=== PATIENT | male | born 1945 | race Caucasian/White ===

== ENCOUNTER 2016-08-22 08:58 | Emergency (ER) | payer MEDICARE, OTHER ==
[2016-08-22] MEDS ORDERED: Acetaminophen TAB* 325 MG PO ONE (09:55)
[2016-08-22 10:38] LABS: Hematocrit 40 % (42-52); Mean Corpuscular HGB Conc 35 g/dl (31-36); Mean Corpuscular Hemoglobin 34 pg (27-31); Mean Corpuscular Volume 96 fL (80-94); Mean Platelet Volume 9 um3 (7.4-10.4); Red Blood Count 4.16 10^6/ul (4.0-5.4); Red Cell Distribution Width 13 % (10.5-15); White Blood Count 7.8 10^3/ul (3.5-10.8)
--- NOTE | 2016-08-22 10:42 | RAD ---
INDICATION: Pain and swelling. COMPARISON: None TECHNIQUE: Duplex interrogation of the Lowerextremity was performed. FINDINGS: Deep veins: The common femoral, great saphenous, profunda femoris, proximal, mid, and distal deep femoral, popliteal, posterior tibial, and one of 2 peroneal veins are patent. There is normal compressibility, augmentation, and phasic flow. One of the peroneal veins therefore not identified which could be related to thrombus or be related to technical factors Superficial veins: There are no findings of superficial thrombophlebitis. Popliteal fossa:There is no evidence of a popliteal cyst. Soft tissues:There are no soft tissue abnormalities. IMPRESSION: POSSIBLE THROMBOSIS OF ONE OF THE PAIRED PERONEAL VEINS. NO EVIDENCE OF DEEP VENOUS THROMBOSIS ABOVE THE KNEE
[2016-08-22 11:04] VITALS: BP 127/78
[2016-08-22 11:14] LABS: Calcium 9.1 mg/dL (8.6-10.3); EGFR Non-African American 73.9 (>60); Globulin 2.5 g/dL (2-4); Magnesium 1.8 mg/dL (1.9-2.7); Phosphorus 3.5 mg/dL (2.5-5.0); Potassium 4.4 mmol/L (3.5-5.0); Total Bilirubin 0.8 mg/dL (0.2-1.0); Total Protein 6.5 g/dL (6.4-8.9)
[2016-08-22] MEDS ORDERED: Enoxaparin(*) 40 MG/0.4 ML SYR SUBCUT ONE (12:08)
--- NOTE | 2016-08-22 12:08 | ED ---
Lower Extremity - HPI Summary HPI Summary: 71 y/o male with PMH of DM, HTN, elevated chol presents with L calf pain x 3 days, states intermittently occuring for weeks, seen by Dr. Amado, was given "pill" to take 4 times a day to prevent symptoms. patient poor historian, unawawre of medications, per pharmacy- amlod, lisinopril, atorv, metform, and low Mg- likely Mg new medication as multiple times a day. Patient states pain not worse with walking/ amulation, worst with rising from chair, then improved with walking. no h/o CA, prior DVT/ PE. patient wasn't sure if he was on Plavix, was in previous records. Denies GI bleed, stroke, recent bleed. ONly anticoag- 81 ASA daily. No SOB, chest pain. Pain located L calf, radiates to back of knee and lateral thigh. NO hip/ lower back pain - History of Current Complaint Chief Complaint: EDExtremityLower Stated Complaint: LT LEG PAIN Time Seen by Provider: 08/22/16 09:13 Hx Obtained From: Patient Mechanism Of Injury: Unknown Onset of Pain: Days Onset/Duration: Worse Since - 3 days Severity Initially: Moderate Severity Currently: Moderate Pain Intensity: 10 Pain Scale Used: 0-10 Numeric - patient sitting comfortably on stretcher, NAD at rest, able to walk to bathroom with antalgic gait, no severe pain noted. - Allergies/Home Medications Allergies/Adverse Reactions: Allergies Allergy/AdvReac Type Severity Reaction Status Date / Time Penicillins [PCN] Allergy Unknown unk Verified 08/22/16 09:01 Iron Allergy Constipatio Verified 08/22/16 09:01 n PMH/Surg Hx/FS Hx/Imm Hx Previously Healthy: No Endocrine/Hematology History: Reports: Hx Diabetes - TYPE 2 Cardiovascular History: Reports: Hx Hypertension - ON MEDICATION FOR, Other Cardiovascular Problems/Disorders - CHOLESTEROL CONTROL WITH MEDS Denies: Hx Congestive Heart Failure, Hx Pacemaker/ICD Respiratory History: Reports: Hx Asthma - NO PROBLEMS IN RECENT YEARS, Hx Chronic Bronchitis, Hx Sleep Apnea GI History: Reports: Hx Gastroesophageal Reflux Disease - CONTROLLED WITH ROLAIDS, Hx Hiatal Hernia, Other GI Disorders - CONSTIPATION, USING MEDICATION History: Reports: Hx Kidney Stones - LEFT URETERAL STENT, WITH HEMATURIA, BURNING, Other Problems/Disorders - ENLARGE PROSTATE Denies: Hx Renal Disease Musculoskeletal History: Reports: Hx Back Problems, Other Musculoskeletal History - carpaltunnel surgery sakshi. Sensory History: Reports: Hx Cataracts - BILATERAL, Hx Contacts or Glasses - READING GLASSES, Hx Vision Problem - pt states dizzyness at times Denies: Hx Hearing Aid Opthamlomology History: Reports: Hx Cataracts - BILATERAL, Hx Contacts or Glasses - READING GLASSES, Hx Vision Problem - pt states dizzyness at times Psychiatric History: Reports: Hx Depression - DENIES Denies: Hx Panic Disorder - Surgical History Surgery Procedure, Year, and Place: BILATERAL HERNIA, [facility] Hx Anesthesia Reactions: No Infectious Disease History: No Infectious Disease History: Denies: Hx Clostridium Difficile, History Other Infectious Disease, Traveled Outside the [place] in Last 30 Days - Social History Alcohol Use: Rare Substance Use Type: Reports: None Hx Tobacco Use: No Smoking Status (MU): Former Smoker Type: Cigarettes Amount Used/How Often: LESS THAN 1 PACK PER WEEK Length of Time of Smoking/Using Tobacco: 2-3 YEARS Have You Smoked in the Last Year: No Review of Systems Constitutional: Negative Eyes: Negative ENT: Negative Cardiovascular: Negative Respiratory: Negative Gastrointestinal: Negative Genitourinary: Negative Positive: Myalgia Skin: Negative Neurological: Negative Psychological: Normal All Other Systems Reviewed And Are Negative: Yes Physical Exam Triage Information Reviewed: Yes Vital Signs On Initial Exam: Initial Vitals Temp Pulse Resp BP Pulse Ox 98.9 F 75 16 152/77 96 08/22/16 09:01 08/22/16 09:01 08/22/16 09:01 08/22/16 09:01 08/22/16 09:01 Completion Of Physical Exam Limited Due To: Dementia Appearance: Positive: Well-Appearing, Well-Nourished, Pain Distress - mild Skin: Positive: Warm, Skin Color Reflects Adequate Perfusion, Other - PT, DP pulses 2+ b/l, equal, good skin colour, no hyperpigmentation b/l LE's, no edema noted, no calf size difference Eyes: Positive: Normal, EOMI Respiratory/Lung Sounds: Positive: Clear to Auscultation, Breath Sounds Present Cardiovascular: Positive: Normal, RRR, Pulses are Symmetrical in both Upper and Lower Extremities, S1, S2 Abdomen Description: Positive: Nontender, No Organomegaly, Soft Musculoskeletal: Positive: Normal, Strength/ROM Intact, Pain @ - with moderate to deep palpation over posterior L calf and lateral calf with minimal pain behind knee, no knee effusion, no warmth, no erythema noted., Benny Sign Left - positive mild Neurological: Positive: Normal, Sensory/Motor Intact, Alert, Oriented to Person Place, Time, CN Intact II-III, Normal Gait Psychiatric: Positive: Normal AVPU Assessment: Alert Diagnostics - Vital Signs Vital Signs Temp Pulse Resp BP Pulse Ox 08/22/16 10:30 69 127/78 93 08/22/16 10:26 143/76 08/22/16 10:22 68 93 08/22/16 10:19 68 93 08/22/16 09:30 70 146/71 95 08/22/16 09:21 76 95 08/22/16 09:20 183/74 08/22/16 09:01 98.9 F 75 16 152/77 96 - Laboratory Lab Results: Lab Results 08/22/16 08/22/16 08/22/16 Range/Units 10:25 10:25 10:25 WBC 7.8 (3.5-10.8) 10^3/ul RBC 4.16 (4.0-5.4) 10^6/ul Hgb 14.0 (14.0-18.0) g/dl Hct 40 L (42-52) % MCV 96 H (80-94) fL MCH 34 H (27-31) pg MCHC 35 (31-36) g/dl RDW 13 (10.5-15) % Plt Count 176 (150-450) 10^3/ul MPV 9 (7.4-10.4) um3 Neut % (Auto) 64.2 (38-83) % Lymph % (Auto) 20.8 L (25-47) % [place] % (Auto) 9.4 H (1-9) % Eos % (Auto) 4.6 (0-6) % Baso % (Auto) 1.0 (0-2) % Absolute Neuts (auto) 5.0 (1.5-7.7) 10^3/ul Absolute Lymphs (auto) 1.6 (1.0-4.8) 10^3/ul Absolute Monos (auto) 0.7 (0-0.8) 10^3/ul Absolute Eos (auto) 0.4 (0-0.6) 10^3/ul Absolute Basos (auto) 0.1 (0-0.2) 10^3/ul Absolute Nucleated RBC 0 10^3/ul Nucleated RBC % 0.1 INR (Anticoag Therapy) 0.91 (0.89-1.11) Sodium 133 (133-145) mmol/L Potassium 4.4 (3.5-5.0) mmol/L Chloride 102 (101-111) mmol/L Carbon Dioxide 24 (22-32) mmol/L Anion Gap 7 (2-11) mmol/L BUN 12 (6-24) mg/dL Creatinine 1.00 (0.67-1.17) mg/dL Est GFR ( Amer) 95.0 (>60) Est GFR (Non-Af Amer) 73.9 (>60) BUN/Creatinine Ratio 12.0 (8-20) Glucose 175 H (70-100) mg/dL Calcium 9.1 (8.6-10.3) mg/dL Phosphorus 3.5 (2.5-5.0) mg/dL Magnesium 1.8 L (1.9-2.7) mg/dL Total Bilirubin 0.80 (0.2-1.0) mg/dL AST 14 (13-39) U/L ALT 21 (7-52) U/L Alkaline Phosphatase 59 (34-104) U/L Total Protein 6.5 (6.4-8.9) g/dL Albumin 4.0 (3.2-5.2) g/dL Globulin 2.5 (2-4) g/dL Albumin/Globulin Ratio 1.6 (1-3) Result Diagrams: 08/22/16 10:25 08/22/16 10:25 Lab Statement: Any lab studies that have been ordered have been reviewed, and results considered in the medical decision making process. Lower Extremity Course/Dx - Course Course Of Treatment: Patient discussed with DR. Layton, Dr. Anguiano called, was unfamiliar with patient. Dr Amado called due to lack of PMH- d-dimer negative , Dr. Amado will follow clinically. - Diagnoses Differential Diagnosis/HQI/PQRI: Positive: Compartment Syndrome, DVT, Infection , Sprain, Strain, Tendonitis Provider Diagnoses: Muscle strain Discharge - Discharge Plan Condition: Stable Disposition: HOME Patient Education Materials: Muscle Strain (ED) Referrals: Sydnie Amado MD [Primary Care Provider] - Additional Instructions: - Follow up with Dr. Amado this week call in AM for appointment. Return to ER if unable to get appointment - May take tylenol for pain - Increase walking/ ambulation
[2016-08-22] MEDS ORDERED: Enoxaparin(*) 150 MG/ML 1 ML SYRINGE SUBCUT ONE (13:00)
[2016-08-22] MEDS ORDERED: Enoxaparin(*) 100 MG/ML SYR SUBCUT SCH (13:00)
== END 2016-08-22 14:52 | disposition home or self-care (01) ==
LOC: ED 08:58
DX: S86.912A Strain of unspecified muscle(s) and tendon(s) at lower leg level, left leg, initial encounter (principal); M79.605 Pain in left leg; Z86.79 Personal history of other diseases of the circulatory system; E11.8 Type 2 diabetes mellitus with unspecified complications; X58.XXXA Exposure to other specified factors, initial encounter; Y93.9 Activity, unspecified; Y92.9 Unspecified place or not applicable; Z87.891 Personal history of nicotine dependence
CPT/HCPCS: 36415; 80053; 83735; 84100; 85025; 85379; 85610; 85730; 99282; A9270-GY; J1650

== ENCOUNTER 2017-02-28 09:12 | Day surgery (SDC) | payer MEDICARE, OTHER ==
[~2017-02-28 09:12] MED LIST: Acetaminophen TAB* 325 MG PO PRN; Buffered Lidocaine 0.9% SYRIN* 5 ML/SYR SYRINGE INTRADERM ONE; Buffered Lidocaine 0.9% SYRIN* 5 ML/SYR SYRINGE ONE; Cyclopentolate 1% OPTH.SOL* 2 ML BTL ONE; Flurbiprofen 0.03% OPTH.SOL* 2.5 ML BTL ONE; Lidocaine 1% MPF* 2 ML VIAL ONE; Neomycin/Polymy/Dex OPHTH.OIN* 3.5 GM ONE; Phenylephrine 2.5% OPTH.SOL* 2 ML BTL ONE; Povidone Iodine 5% OPTH* 30 ML BTL ONE; Tetracaine 0.5% OPTH.SOL 4 ML* 1 DROP BTL ONE; Tropicamide 1% OPTH.SOL* BTL ONE; acetaZOLAMIDE TAB* 250 MG ONE
[2017-02-28] MEDS ORDERED: Midazolam* 1 MG/ML 2 ML VIAL (2 MG) ONE ×2 (10:20→10:57)
[2017-02-28 11:26] VITALS: BP 131/78
--- NOTE | 2017-03-01 03:17 | OP ---
DATE OF OPERATION: 02/28/17 - [facility] DATE OF : 47 SURGEON: Quan Walker MD ANESTHESIOLOGIST: Kirsten Covington MD ANESTHESIA: Monitored anesthesia care. PRE-OP DIAGNOSIS: Cataract, right eye. POST-OP DIAGNOSIS: Cataract, right eye. OPERATIVE PROCEDURE: Cataract surgery involving the right eye. IMPLANT: SN60WF 23.0 diopter lens to the right eye. COMPLICATIONS: None. DESCRIPTION OF PROCEDURE: The patient was given phenylephrine 2.5% with cyclopentolate 1% eye drops to the operative eye in the preoperative area. The patient was brought to the operating room, where a time-out was taken to identify the correct patient, site, and side of the surgery. The patient's right eye was prepped and draped in the usual sterile fashion with 5% Betadine. A second time-out was taken to verify the correct patient, site, and side of surgery, and correct lens selection. A lid speculum was placed to the right eye. A 1-mm paracentesis blade was used to make a clear corneal incision in the superotemporal position. Preservative-free 1% lidocaine was injected into the anterior chamber. DisCoVisc was then injected into the anterior chamber. A 2.75-mm keratome blade was used to make a triplanar incision at the inferotemporal position. A cystotome initiated a capsulorrhexis, which was completed with Utrata forceps in a continuous and curvilinear manner. Hydrodissection of the lens was performed with BSS on a cannula. The lens could be spun in the capsular bag. The phacoemulsification handpiece was used with a [id number] technique to remove the nucleus in its entirety with 11.16 CDE. The I/A handpiece then removed the residual cortical lens material. DisCoVisc was injected to inflate the capsular bag. The planned SN60WF 23.0 diopter lens was injected into the capsular bag. The residual DisCoVisc was removed from the eye with I/A handpiece. The corneal incisions were hydrated and no leaks occurred at physiologic pressure around 20 mmHg per palpation. The lid speculum was then removed and drapes removed. Maxitrol ointment was placed on the surface of the operative eye. An adhesive patch and shield was placed on the operative eye. The patient was taken to the postoperative area in stable condition. [id number]/[facility] #: [id number] MTDAmarilys
== END 2017-02-28 11:34 | disposition home or self-care (01) ==
LOC: OREAST 09:12
PROVIDERS: ATTEND Student in an Organized Health Care Education/Training Program
DX: H25.11 Age-related nuclear cataract, right eye (principal); E11.3293 Type 2 diabetes mellitus with mild nonproliferative diabetic retinopathy without macular edema, bilateral; Z79.84 Long term (current) use of oral hypoglycemic drugs; Z87.891 Personal history of nicotine dependence; I10 Essential (primary) hypertension; E78.2 Mixed hyperlipidemia
CPT/HCPCS: A9270-GY; J2250; V2632

== ENCOUNTER 2017-03-07 06:31 | Day surgery (SDC) | payer MEDICARE, OTHER ==
[~2017-03-07 06:31] MED LIST changes: -Buffered Lidocaine 0.9% SYRIN* 5 ML/SYR SYRINGE ONE; -Cyclopentolate 1% OPTH.SOL* 2 ML BTL ONE; -Flurbiprofen 0.03% OPTH.SOL* 2.5 ML BTL ONE; -Lidocaine 1% MPF* 2 ML VIAL ONE; -Neomycin/Polymy/Dex OPHTH.OIN* 3.5 GM ONE; -Phenylephrine 2.5% OPTH.SOL* 2 ML BTL ONE; -Povidone Iodine 5% OPTH* 30 ML BTL ONE; -Tetracaine 0.5% OPTH.SOL 4 ML* 1 DROP BTL ONE; -Tropicamide 1% OPTH.SOL* BTL ONE; -acetaZOLAMIDE TAB* 250 MG ONE
[2017-03-07] MEDS ORDERED: fentaNYL* 50 MCG/ML 2 ML VIAL (100 MCG VIAL) ONE (07:14)
[2017-03-07] MEDS ORDERED: Midazolam* 1 MG/ML 2 ML VIAL (2 MG) ONE ×3 (07:14→08:22)
[2017-03-07 08:16] VITALS: BP 134/89
[2017-03-07] MEDS ORDERED: Flurbiprofen 0.03% OPTH.SOL* 2.5 ML BTL ONE (10:20)
[2017-03-07] MEDS ORDERED: Neomycin/Polymy/Dex OPHTH.OIN* 3.5 GM ONE (10:20)
[2017-03-07] MEDS ORDERED: Cyclopentolate 1% OPTH.SOL* 2 ML BTL ONE (10:20)
[2017-03-07] MEDS ORDERED: Lidocaine 1% MPF* 2 ML VIAL ONE (10:20)
[2017-03-07] MEDS ORDERED: Buffered Lidocaine 0.9% SYRIN* 5 ML/SYR SYRINGE ONE (10:20)
[2017-03-07] MEDS ORDERED: Tetracaine 0.5% OPTH.SOL 4 ML* 1 DROP BTL ONE (10:20)
[2017-03-07] MEDS ORDERED: Tropicamide 1% OPTH.SOL* BTL ONE (10:20)
[2017-03-07] MEDS ORDERED: acetaZOLAMIDE TAB* 250 MG ONE (10:20)
[2017-03-07] MEDS ORDERED: Povidone Iodine 5% OPTH* 30 ML BTL ONE (10:20)
[2017-03-07] MEDS ORDERED: Phenylephrine 2.5% OPTH.SOL* 2 ML BTL ONE (10:20)
--- NOTE | 2017-03-08 08:30 | OP ---
DATE OF OPERATION: 03/07/17 - [facility] DATE OF : 47. SURGEON: Quan Walker MD ANESTHESIOLOGIST: Elias Paul MD ANESTHESIA: Monitored anesthesia. PRE-OP DIAGNOSIS: Cataract, left eye. POST-OP DIAGNOSIS: Cataract, left eye. OPERATIVE PROCEDURE: Cataract surgery, left eye. IMPLANT: SN60WF 21.5 diopter lens to the left eye. COMPLICATIONS: None. DESCRIPTION OF PROCEDURE: The patient was given phenylephrine 2.5% with cyclopentolate 1% eye drops to the operative eye in the preoperative area. The patient was brought to the operating room, where a time-out was taken to identify the correct patient, site, and side of the surgery. The patient's left eye was prepped and draped in the usual sterile fashion with 5% Betadine. A second time-out was taken to verify the correct patient, site, and side of surgery, and correct lens selection. A lid speculum was placed to the left eye. A 1-mm paracentesis blade was used to make a clear corneal incision in the inferotemporal position. Preservative-free 1% lidocaine was injected into the anterior chamber. DisCoVisc was then injected into the anterior chamber. A 2.75-mm keratome blade was used to make a triplanar incision at the superotemporal position. A cystotome initiated a capsulorrhexis, which was completed with Utrata forceps in a continuous and curvilinear manner. Hydrodissection of the lens was performed with BSS on a cannula. The lens could be spun in the capsular bag. The phacoemulsification handpiece was used with a [id number] technique to remove the nucleus in its entirety with 11.09 CDE. The I/A handpiece then removed the residual cortical lens material. DisCoVisc was injected to inflate the capsular bag. The planned SN60WF 21.5 diopter lens was injected into the capsular bag. The residual DisCoVisc was removed from the eye with I/A handpiece. The corneal incisions were hydrated and no leaks occurred at physiologic pressure around 20 mmHg per palpation. The lid speculum was then removed and drapes removed. Maxitrol ointment was placed on the surface of the operative eye. An adhesive patch and shield was placed on the operative eye. The patient was taken to the postoperative area in stable condition. [id number]/[facility] #: [id number] [facility]ITALAmarilys
== END 2017-03-07 08:20 | disposition home or self-care (01) ==
LOC: OREAST 06:31
PROVIDERS: ATTEND Student in an Organized Health Care Education/Training Program
DX: H25.12 Age-related nuclear cataract, left eye (principal); E11.3293 Type 2 diabetes mellitus with mild nonproliferative diabetic retinopathy without macular edema, bilateral; Z96.1 Presence of intraocular lens; G47.33 Obstructive sleep apnea (adult) (pediatric); I10 Essential (primary) hypertension; E78.5 Hyperlipidemia, unspecified; J45.909 Unspecified asthma, uncomplicated; Z87.891 Personal history of nicotine dependence; E53.8 Deficiency of other specified B group vitamins; Z79.84 Long term (current) use of oral hypoglycemic drugs; Z88.0 Allergy status to penicillin; Z88.8 Allergy status to other drugs, medicaments and biological substances
CPT/HCPCS: A9270-GY; J2250; J3010; V2632